=== PATIENT | male | born 1950 | race Caucasian/White ===

== ENCOUNTER 2025-02-24 10:34 | Day surgery (SDC) | payer MEDICARE, OTHER ==
--- NOTE | 2025-02-24 07:54 | HP ---
HISTORY OF PRESENT ILLNESS: A 74-year-old with mild lower chest area aches along the costal margin. He had a CT scan that showed emphysema, pulmonary fibrosis, scarring with hiatal hernia and patient said he has had a hiatal hernia for years. No change in weight recently and gallbladder is okay according to the patient. Reviewed the report that was in the office. Mainly sore with activity, golf, raking, and other activities in right costal margin. It is not clear whether it is a musculoskeletal component. Mainly occurs with activity versus other etiology, referred pain from other etiology such as hiatal hernia, gastritis, duodenitis, peptic ulcer disease, or other etiology. PAST MEDICAL HISTORY: Coronary artery disease, hyperlipidemia, reflux, hypertension, history of ME in the past. PAST SURGICAL HISTORY: He had hernia repair in the past. He had right elbow surgery in the past, coronary stent in the past, and cardiac cath in the past. FAMILY HISTORY: Diabetes, heart disease. SOCIAL HISTORY: No smoking. No alcohol abuse. MEDICATIONS: Omeprazole, atorvastatin, metoprolol, and aspirin. ALLERGIES: Amoxicillin. REVIEW OF SYSTEMS: Twelve systems reviewed. Pertinent for multiple medical problems as noted above. No chest pain or palpitations. No higher up chest pain, just along the costal margin. All other systems negative or noncontributory as noted above and per preadmission questionnaire. Patient did quit smoking years ago. Sleep apnea, uses CPAP machine. PHYSICAL EXAMINATION: GENERAL: No acute distress. VITAL SIGNS: Height 5 feet 10 inches. BMI 33. HEENT: Sclerae nonicteric. NECK: No JVD. CHEST: Equal excursion. Nonlabored breathing. CARDIOVASCULAR: Regular rate and rhythm. ABDOMEN: Soft but with mild tenderness in the right on the rib costal margin area. EXTREMITIES: No cyanosis or edema. NEUROLOGIC: Alert and oriented. Moving all extremities symmetrically. PSYCHIATRIC: Appropriate mood and affect. SKIN: Dry. IMPRESSION: Right area costal margin, chest area pain, questionable etiology. It might be musculoskeletal which is mainly after activity. Given his history of hiatal hernia, EGD to evaluate hiatal hernia as well as to evaluate for peptic ulcer disease, gastritis, or other etiology to make sure that is causing his symptoms as he has had that for decades. Risks of upper endoscopy explained in detail including, but not limited to, bleeding; infection; risk of bowel injury, possible requiring open procedure; risk of incomplete exam, possible requiring barium enema or swallow; possible missed or non-diagnosis with possible need for further procedure or referrals; risk of anesthesia or sedation, but not limited to. Patient may also need an upper GI study. I reviewed his CT scan, scheduled for outpatient under MAC anesthesia, EGD with possible biopsy as an outpatient. Otherwise, continue medications for heart disease, hyperlipidemia, hypertension, and reflux.
[2025-02-24] MEDS ORDERED: Lactated Ringers 1,000 ML IV ONE (10:41)
[2025-02-24] MEDS: Lactated Ringers 1,000 ML IV SCH (10:44)
[2025-02-24] MEDS ORDERED: propofoL IV ONE (12:08)
[2025-02-24 13:11] VITALS: BP 115/73; PULSE 50; RESP 17; TEMP 97; O2SAT 96
--- NOTE | 2025-02-26 08:50 | OP ---
SURGERY DATE/TIME: 02/24/2025 [id number] PREOPERATIVE DIAGNOSIS: History of right costal margin aches and pain, history of chronic hiatal hernia, need for upper endoscopy to evaluate for ulcer disease, gastritis, or other etiology. POSTOPERATIVE DIAGNOSES: 1) Minimal mild gastritis. 2) Large chronic hiatal hernia. 3) Small gastric polyp. 4) Very short segment of minimal inflammation of the distal esophagus. PROCEDURES: 1) Esophagogastroduodenoscopy. 2) Cold biopsy of the antrum for H pylori. 3) Cold biopsy of gastric polyp and removal of gastric polyp. 4) Cold biopsy of distal esophagus. SURGEON: Stephen Cruz MD ANESTHESIA: MAC. ESTIMATED BLOOD LOSS: Minimal. INDICATIONS: Consent obtained. DESCRIPTION OF PROCEDURE AND FINDINGS: Patient was taken to the endoscopy room. MAC anesthesia induced. After official time-out and no disagreement in planned procedure, bite block positioned. Videogastroscope passed down the esophagus without difficulty through patent pylorus to the junction of third and fourth portion of duodenum. Duodenum was unremarkable. No signs of any ulcers. Scope was pulled back in the stomach. There was some minimal mild gastritis and gastric erythema. Cold biopsy was taken there for H pylori. Good hemostasis noted. On retroflexion, small gastric polyp in the proximal body of the stomach was removed with cold biopsy forceps and felt there was a good chance of hyperplastic-type polyp. Patient did have a large hiatal hernia that he has had for decades. Scope was pulled back. GE junction was close to 30 or 31 cm. There was a very short segment of about 3 mm of a little bit of inflammation distal esophagus, but there were no signs of any obvious Moseley's or no signs of any erosions. This is normal variation of GE junction versus minimal inflammation. No signs of any obvious masses in the esophagus. Cold biopsy then taken in the distal esophagus for histology. Otherwise, remainder of esophagus grossly unremarkable. Patient tolerated the procedure well. There were no immediate complications. Findings were discussed with family when they were in the waiting area.
== END 2025-02-24 13:23 | disposition home or self-care (01) ==
LOC: SDC 10:34
PROVIDERS: ATTEND Surgery
DX: K29.70 Gastritis, unspecified, without bleeding (principal); K44.9 Diaphragmatic hernia without obstruction or gangrene; R10.11 Right upper quadrant pain; K31.7 Polyp of stomach and duodenum